=== PATIENT | male | born 1950 | race Caucasian/White ===

== ENCOUNTER 2021-03-26 09:49 | Emergency (ER) | payer MEDICARE, OTHER ==
[~2021-03-26] VITALS: Ht 182.9 cm; Wt 89.4 kg
[2021-03-26] MEDS ORDERED: ONDANSETRON ODT8 MG PO (10:28)
== END 2021-03-26 11:57 | disposition home or self-care (01) ==
LOC: ED 09:49
DX: U07.1 COVID-19 (principal); I25.2 Old myocardial infarction; Z87.891 Personal history of nicotine dependence
CPT/HCPCS: 99284

== ENCOUNTER 2021-03-28 07:42 | Emergency (ER) | payer MEDICARE ==
[~2021-03-28] VITALS: Ht 182.9 cm; Wt 89.4 kg
[~2021-03-28 07:42] MED LIST: ONDANSETRON ODT8 MG PO
--- OUTSIDE RECORDS SUMMARY | 2021-03-28 07:46 | XMS ---
PreManage Notification: ERMELINDA PETERSEN [employer] Community [employer] Manager Events No recent Security Events currently on file CRITERIA MET - [facility] - 2 Visits in 30 Days CARE PROVIDERS There are no care providers on record at this time. [facility] has no Care Guidelines for this patient. Emmanuel VISIT COUNT (12 MO.) [address] [facility] TOTAL 2 NOTE: Visits indicate total known visits. ED/C VISIT TRACKING (12 MO.) 03/28/2021 07:45 [facility] [place] TYPE: Emergency COMPLAINT: - SUICIDAL 03/26/2021 09:50 [facility] [place] TYPE: Emergency COMPLAINT: - SOB INPATIENT VISIT TRACKING (12 MO.) No inpatient visits to display in this time frame [email or web address]
[2021-03-28] MEDS ORDERED: FLUOXETINE HCL10 MG PO (09:07)
[2021-03-28] MEDS ORDERED: LIPITOR40 MG PO (09:07)
[2021-03-28] MEDS ORDERED: LISINOPRIL5 MG PO (09:07)
[2021-03-28] MEDS ORDERED: LO-DOSE ASPIRIN81 MG PO (09:08)
== END 2021-03-28 15:49 | disposition home or self-care (01) ==
LOC: ED 07:42
DX: U07.1 COVID-19 (principal); R45.851 Suicidal ideations; I25.2 Old myocardial infarction; Z87.891 Personal history of nicotine dependence; Z79.899 Other long term (current) drug therapy; Z79.82 Long term (current) use of aspirin
CPT/HCPCS: 71045; 80053; 81001; 84443; 85025; 99285-25; G0480

== ENCOUNTER 2023-12-16 16:04 | Emergency (ER) | payer MEDICARE ==
[~2023-12-16] VITALS: Ht 182.9 cm; Wt 96.4 kg
[~2023-12-16 16:04] MED LIST changes: +FLUOXETINE HCL10 MG PO; +LIPITOR40 MG PO; +LISINOPRIL5 MG PO; +LO-DOSE ASPIRIN81 MG PO
[2023-12-16 16:24] LABS: BASOPHILS 0.5 % (0-2); HEMATOCRIT 42.2 % (35.0-50.0); HEMOGLOBIN 14.7 g/dL (12.0-18.0); LYMPHOCYTES 36.3 % (24-44); MCHC 34.8 g/dl (30-36); MONOCYTES 9.8 % (0-12); NEUTROPHILS 51.4 % (39-80); PLATELET COUNT 175 K/uL (140-440); RBC 4.59 M/ul (4.3-5.7); RDW 14.5 (10.5-15.0)
[2023-12-16 16:34] LABS: INR 1.11 (0.80-1.30); PROTIME 13.9 Sec (11.2-14.2)
[2023-12-16 16:36] LABS: PARTIAL THROMBOPLASTIN TIME 35.1 Sec (22.9-41.3)
[2023-12-16 16:42] LABS: ALBUMIN 3.8 g/dL (3.4-5.0); ALBUMIN/GLOBULIN RATIO 1.09 (1.1-2.4); ANION GAP 9.1 (7-21); BILIRUBIN, TOTAL 0.5 ng/dL (0.2-1.0); BUN/CREATININE RATIO 19.81 (6.0-28.6); CALCIUM 9.1 mg/dL (8.5-10.1); CREATININE, SERUM 1.11 mg/dL (0.70-1.30); POTASSIUM 4.1 mmol/L (3.5-5.1); PROTEIN, TOTAL 7.3 g/dL (6.4-8.2)
[2023-12-16] MEDS ORDERED: LEVETIRACETAM IV ONE (17:00)
[2023-12-16] MEDS ORDERED: TRANEXAMIC ACID 2,000 MG in SODIUM CHLORIDE 0.9% 100 ML IV ONE (17:00)
[2023-12-16] MEDS ORDERED: DEXTROSE 5% IV ONE (17:00)
[2023-12-16] MEDS ORDERED: LABETALOL HCL 100 MG/20 ML MDV IV ONE (18:00)
[2023-12-16] MEDS ORDERED: LABETALOL HCL 20 MG/4 ML VIAL IV ONE (18:15)
[2023-12-16 19:11] VITALS: BP 119/71
--- NOTE | 2023-12-19 07:19 | EKG ---
[facility] [address] [facility] [place], [place] [address] Signed Normal sinus rhythm Left axis deviation Right bundle branch block Abnormal ECG No previous ECGs available Confirmed by Darryn Moeller MD ([id number]) on 12/19/2023 7:19:30 AM Electronically Signed By: DARRYN MOELLER 12/19/23 0719 PATIENT NAME: ERMELINDA PETERSEN HAILEY Electrocardiogram DATE OF : 46 PHYSICIAN: DARRYN MOELLER REPORT #: [id number] REPORT IS CONFIDENTIAL AND NOT TO BE RELEASED WITHOUT AUTHORIZATION
== END 2023-12-16 19:11 | disposition short-term general hospital (02) ==
LOC: ED 16:04
PROVIDERS: Emergency Medicine
DX: I61.0 Nontraumatic intracerebral hemorrhage in hemisphere, subcortical (principal); R47.01 Aphasia; I25.2 Old myocardial infarction; Z79.899 Other long term (current) drug therapy; Z79.82 Long term (current) use of aspirin; Z87.891 Personal history of nicotine dependence
CPT/HCPCS: 36415; 70450; 70496; 70498; 80053; 84484; 85025; 85610; 85730; 93005; 93010; 96365; 96368; 96375; 99285-25; J1953; Q9967

== ENCOUNTER 2025-04-06 11:41 | Emergency (ER) | payer MEDICARE ==
[~2025-04-06] VITALS: Ht 182.9 cm; Wt 99.9 kg
[~2025-04-06 11:41] MED LIST changes: +HYDROXYZINE PAM25 MG PO
[2025-04-06 12:25] LABS: BASOPHILS 0.6 % (0.2-1.2); EOSINOPHILS 2.5 % (0.8-7.0); LYMPHOCYTES 27.1 % (21.8-53.1); MCH 30.4 PG (25.7-32.2); MCHC 33.9 g/dL (32.3-36.5); MCV 89.7 fL (79.0-92.2); MONOCYTES 12.9 % (5.3-12.2); NEUTROPHILS 56.6 % (34.0-67.9); RBC 4.64 M/uL (4.63-6.08)
[2025-04-06 12:38] LABS: CORONAVIRUS COVID-19 AG NEGATIVE (NEGATIVE)
[2025-04-06 12:46] LABS: ALT (SGPT) 38.0 U/L (14-59); AST (SGOT) 27.0 U/L (15-37); GLOMERULAR FILTRATION RATE,EST 82.0 mL/min (>60); PROTEIN, TOTAL 7.4 g/dL (6.4-8.2); UREA NITROGEN 13.0 mg/dL (7-18)
[2025-04-06 13:14] VITALS: BP 135/70
== END 2025-04-06 13:14 | disposition home or self-care (01) ==
LOC: ED 11:41
PROVIDERS: Emergency Medicine
DX: J06.9 Acute upper respiratory infection, unspecified (principal); B97.89 Other viral agents as the cause of diseases classified elsewhere; I25.2 Old myocardial infarction; I10 Essential (primary) hypertension; Z87.891 Personal history of nicotine dependence; Z79.899 Other long term (current) drug therapy
CPT/HCPCS: 36415; 71045; 80053; 83880; 84484; 85025; 99283-25